=== PATIENT | female | born 1985 | race American Indian/Alaskan Native ===

== ENCOUNTER 2017-04-16 20:40 | Emergency (ER) | payer OTHER ==
[2017-04-16 21:18] VITALS: RESP 16; TEMP 98.2; O2SAT 98
[2017-04-16] MEDS ORDERED: Lidocaine 1% Inj (20ml) IJ STA (21:46)
[2017-04-16] MEDS ORDERED: Lidocaine 1% Inj (20ml) ONE (21:51)
[2017-04-16 23:05] VITALS: BP 142/70; PULSE 90
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
== END 2017-04-16 23:26 | disposition home or self-care (01) ==
LOC: ED 20:40 → MERGE 20:40 → ED 23:26
DX: S61.412A Laceration without foreign body of left hand, initial encounter (principal); W23.0XXA Caught, crushed, jammed, or pinched between moving objects, initial encounter